=== PATIENT | female | born 1990 | race Caucasian/White ===

== ENCOUNTER 2020-07-16 00:57 | Emergency (ER) | payer OTHER ==
[~2020-07-16] VITALS: Ht 154.9 cm; Wt 88.5 kg
[2020-07-16] MEDS ORDERED: PROMETHAZINE HCL (IM) 25 MG/ML VIAL IM ONE ×2 (01:15→01:27)
[2020-07-16] MEDS ORDERED: PROMETHAZINE HC25 M1 PO (01:22)
[2020-07-16] MEDS ORDERED: IMITREX25 MG PO (01:22)
== END 2020-07-16 01:45 | disposition home or self-care (01) ==
LOC: FSED 01:20
DX: G43.909 Migraine, unspecified, not intractable, without status migrainosus (principal); F43.10 Post-traumatic stress disorder, unspecified
CPT/HCPCS: 99282; J2550